=== PATIENT | male | born 1990 | race Caucasian/White ===

== ENCOUNTER 2017-08-06 17:26 | Emergency (ER) | payer SELFPAY ==
[2017-08-06] MEDS ORDERED: DIPHTH,PERTUSS(ACELL),TET VAC 0.5 ML VIAL IM ONE ×2 (17:39→18:18)
[2017-08-06] MEDS ORDERED: KETOROLAC TROMETHAMINE 60 MG/2 ML VIAL IM ONE ×3 (17:41→18:18)
[2017-08-06] MEDS ORDERED: RINGER'S SOLUTION,LACTATED 1,000 ML IV ONE (18:24)
[2017-08-06] MEDS ORDERED: KETOROLAC TROMETHAMINE 30 MG/ML VIAL IV ONE (18:24)
--- NOTE | 2017-08-06 18:28 | ERNOTE ---
Medical Problem HPI - Narrative Date of Service: 08/06/17 - General Chief Complaint: Laceration Time Seen by Provider: 08/06/17 17:32 Source: patient Exam Limitations: no limitations - Immun/Allergies/Home Medications Immunizations: IMMUNIZATION HX Immunizations Up to Date Yes Allergies/Adverse Reactions: Allergies morphine Allergy (Unknown, Verified 08/06/17 17:39) Home Medications: HOME MEDICATIONS Cephalexin Monohydrate [Keflex] 500 mg PO QID #40 cap 08/06/17 [Last Taken Unknown] - History of Present History Narrative: Pt. comes in with c/o R foot pain and bleeding after he dropped a knife on his foot just prior to arrival. Pt. denies any numbness, tingling, SOB, CP, NVD, but does have some dizziness and states taht he just wants to go to sleep. Review of Systems - Review of Systems Constitutional: Present: fatigue. Absent: fever, chills, weakness, malaise EYE: Present: no symptoms reported ENT: Present: no symptoms reported Respiratory: Present: no symptoms reported. Absent: shortness of breath, cough Cardiology: Present: no symptoms reported. Absent: chest pain, palpitations, edema Gastrointestinal/Abdominal: Present: no symptoms reported. Absent: nausea, vomiting, diarrhea Genitourinary: Present: no symptoms reported Musculoskeletal: Present: no symptoms reported. Absent: back pain, joint pain Skin: Present: no symptoms reported. Absent: rash, change in hair/nails Neurological: Present: no symptoms reported. Absent: headache, dizziness/light- headedness, numbness, tingling All Other Systems: All systems neg except as marked - Patient's Past Medical History Patient History - Medical: No pertinent hx Patient History - Cardiac/Respiratory: Other Patient History - Cancer: No Hx of Cancer Patient History - Surgical Procedures: Orthopedic Patient History - Other: None - Social History Psych History: No pertinent hx - Immunizations Immunizations Up to Date: Yes Physical Exam - Physical Exam General Appearance: Present: wd/wn, alert, no apparent distress Head Exam: Present: normal inspection, no evidence of injury Eye Exam: Normal inspection: bilateral, PERRL: bilateral, EOMI: bilateral Respiratory: Present: no respiratory distress, normal breath sounds, no accessory muscle use, chest nontender, lungs clear Cardiovascular/Chest: Present: regular rate, rhythm, no murmur, normal peripheral pulses Back Exam: Present: normal inspection Extremity Exam: Present: normal range of motion, no edema, other - laceration dorsal mid foot0.4cm x 0.3cm Neurological Exam: Present: alert, oriented, normal mood/affect, no motor/ sensory deficits Skin Exam: Present: normal color, warm/dry. Absent: pallor, skin rash ED Progress - Date and Time Seen: Date and Time: 08/06/17 19:17 Pt. foot without bleeding after setting foot in dangling position for 10 minutes. 08/06/17 19:18 I am not going to attempt to close this wound as blood can pool in the foot and will be trapped and cause delayed healing if the wound is closed and will heal better if left open and pressure bandage applied. - Results and Orders Patient's Lab Results:: I have reviewed the patient's lab results. - Vital Signs Patient's Vital Signs:: I have reviewed the patient's vital signs. Vital Signs: Vital Signs 08/06/17 17:35 Pulse Rate 69 Respiratory 17 Rate Blood Pressure 110/68 O2 Sat by Pulse 100 Oximetry - X-Ray X-Ray #1 X-Ray: foot Interpretation: Interp. by me X-ray Comments: no obvious osseous abnormality over mid foot between second and third metatarsal where pt. has wound. - Progress/Reassessment Chief Complaint: Laceration Progress:: Unchanged Departure Clinical Impression: Laceration of foot Qualifiers: Encounter type: initial encounter Laterality: right Qualified Code(s): S91.311A - Laceration without foreign body, right foot, initial encounter - Departure Disposition: Home self-care Condition: Good Instructions: Stab Wound Additional Instructions: Please follow up with primary provider or return here if you soak through bandage. Prescriptions: Cephalexin Monohydrate [Keflex] 500 mg PO QID #40 cap
[2017-08-06 18:44] LABS: Hematocrit 37.2 % (42.0-52.0); Hemoglobin 13.1 gm/dL (13.5-18.0); Mean Cell Volume 86.9 fl (78-100); Mean Corpuscular Hemoglobin 30.6 pg (27-31); Mean Corpuscular Hgb Conc 35.2 g/dl (32-36); Mean Platelet Volume 10.7 fl (6.0-9.5); Neutrophil # 4.4 K/mm3 (1.3-6.0); Neutrophil % 54.7 % (42-75.0); Platelet Count 166 K/mm3 (150-450); Red Blood Count 4.28 M/mm3 (4.7-6.0); Red Cell Distribution Width 11.7 % (11.5-14.0)
[2017-08-06 19:36] VITALS: BP 121/73
== END 2017-08-06 19:35 | disposition home or self-care (01) ==
LOC: ER 17:26
DX: S91.311A Laceration without foreign body, right foot, initial encounter (principal); W26.0XXA Contact with knife, initial encounter; Z23 Encounter for immunization